=== PATIENT | female | born 1950 | race Caucasian/White ===

== ENCOUNTER 2020-05-14 11:21 | Inpatient (IN) | payer OTHER ==
[~2020-05-14] VITALS: Ht 170.2 cm; Wt 84.8 kg
[~2020-05-14 11:21] MED LIST: AUGMENTIN 875-1 EACH PO; CHLORTHALIDONE25 MG PO; CIPRO500 MG PO; DESVENLAFAXINE50 M2 PO; DOXEPIN 75 MG C75 MG PO; DOXEPIN HCL100 MG PO; EFFEXOR XR37.5 MG PO; ESCITALOPRAM OX20 MG PO; IBUPROFEN 200200 M1 PO; LEVAQUIN 500 M500 MG PO; LEXAPRO20 MG PO; LIPITOR40 MG PO; NORCO 5-325 TA1 EAC1 PO; OMEPRAZOLE40 MG PO; PANTOPRAZOLE SO40 M1 PO; SYNTHROID100 MC1 PO; TYLENOL EXTRA500 MG PO; XANAX 0.5 MG0.5 MG PO; XARELTO15 MG PO; ZOFRAN ODT4 MG PO; ZOFRAN4 MG PO; ZYPREXA 5 MG TAB5 M1 PO
--- NOTE | 2020-05-14 17:05 | NUR ---
PT ARRIVED TO UNIT VIA EMS. PT VERY TALKATIVE AND THANKED THE EMS FOR THEIR CARE. PT ABLE TO WALK FROM STRETCHER TO BED. PT VS TAKEN. GOT WATER FOR PATIENT.
[2020-05-14 17:30] VITALS: BP 129/88
--- NOTE | 2020-05-14 17:30 | NUR ---
WENT TO PT ROOM AND PT STATED SHE CAN'T STAY HERE. ANOTHER RESIDENT WAS YELLING DOWN THE [place] WITH REDIRECTION. SHE STATED SHE DIDN'T KNOW THAT THIS PLACE WAS THE WAY IT WAS THAT [facility] SET THIS UP AND SHE ISN'T CRAZY AND JUST NEED A MED ADJUSTMENT. PT STATED HER 5 YEARS AGO FROM A BRAIN TUMOR AND HE WAS HER ROCK. SHE STATED THEY HAVE BEEN FOR 46 1/2 YEARS. SHE SAYS SHE HAS 4 GIRLS. SHE SAYS THAT SHE DOES LIVE ALONE. SHE DENIES SUICICE, JUST HAVING ANXIETY.
--- NOTE | 2020-05-14 17:50 | NUR ---
PT WANTS CALLED NOW AND TALK TO HIM. SHE STATED THAT SHE DOESN'T BELONG HERE. PT PACING IN THE [place] WITH HER WATER PITCHER.
--- NOTE | 2020-05-14 18:51 | NUR ---
TALKED TO MAURI CAMARA DTR [phone]. SHE STATED THAT SHE JUST GOT OFF THE PHONE WITH HER MOM AND STATED SHE IS UPSET AND THINKS HER ANXIETY WILL BE INCREASED BEING HERE. SHE DOESN'T BELIEVE SHE IS A RISK OF HARMING HERSELF. DRT THINKS THAT SHE STARTED TAKING EFFEXOR AND SHE STARTED GETTING SYMPTOMS FROM THAT. DTR STATED THAT SHE HAD ALOT OF LOSSES. LOST HER DAD AND 7 DAYS LATER LOST HER BROTHER THAT HAD SEPSIS. SHE LOST HER 6 YRS AGO.
--- NOTE | 2020-05-14 19:15 | NUR ---
ANOTHER PART OF HX WAS HAVING A BLOOD CLOT TO RT KNEE, PT STATED SHE WAS ON XARALTO AND WAS TAKEN OFF OF IT DUE TO FALLING DOWN 2 STAIRS AND HAD A LARGE HEMATOMA TO HER BUTT. SAYS SHE SEES A COUNSELER ON A REG. BASIS NAMED KASIA, AND SHE CAN RECOMMEND A THERAPIST FOR HER.
[2020-05-14 19:41] VITALS: BP 136/80
--- NOTE | 2020-05-14 19:59 | NUR ---
PT STATED SHE WILL STAY, DR. DIEZ REC. STAYING THE NIGHT. PT STATED SHE IS BETTER NOW AND VISITING WITH OTHER RESIDENTS.
--- NOTE | 2020-05-15 00:45 | NUR ---
PATIENT WAS IN DINING ROOM WHEN THIS NURSE CAME ON SHIFT AT 1900. PATIENT WAS AWAITING DR Paula TO COME IN AND TALK WITH HER. PATIENT STARTED OFF SITTING BY HERSELF BUT GRADUALLY WORKED HER WAY TO A TABLE WITH 3 OTHER RESIDENTS AND VISITED WITH THEM WHILE WATCHING THE TITANIC ON TV. SHE WAS HEARD TELLING THEM ABOUT HER AND HOW HE HAD OF A BRAIN TUMOR AND HOW IT HAS LEFT HER SO DEPRESSED AND MISSING HIM. SHE WAS HYPERVERBAL AND WITH APPROPRIATE RESPONSES AND REACTIONS TO OTHERS THEY TALKED. PATIENT SEEMED TO RELAX THE EVENING WENT BY. AT BEGINNING OF EVENING SHE WAS WITH C/O OF PRESSURE IN HER CHEST. SHE WANTED TO MAKE SURE IT WASN'T HER HEART. SHE DID NOT HAVE PAIN. TOLD HER HER EKG SHOWED NSR AND A FEW PVC'S WHICH IS WHAT SHE MAY BE FEELING. EXPLAINED THAT ANXIETY CAN INCREASE THIS. WENT OVER A BREATHING TECHNIQUE TO SLOW BREATHING AND RELEASE ANXIETY. PATIENT STATES SHE FELT BETTER AND IS SURE IT WAS JUST HER ANXIETY. SHE HAD NO PROBLEMS THE REST OF NIGHT SHE WENT AND CONVERSED WITH OTHERS. ON ASSESSMEMENT, PATIENT'S LUNGS WERE CTA BILATERALLY. HER HEART SOUNDS WERE WNL WITH OCCASIONAL SKIP. HEARD S1S2, SLIGHT MURMUR. PATIENT WITHOUT EDEMA. STATES LAST BM WAS 05/12/20. SHE STATES SHE DOESN'T EAT MUCH AND CAN GO DAYS WITHOUT A BM. DENIES PAIN. DENIES SI/HI/AVH. VSS. NO WOUNDS SEEN ON SKIN NOT COVERED WITH CLOTHES. PATIENT WAS CALM THRUOUT EVENING AND WENT TO BED ON HER OWN. SHE IS INDEPENDENT WITH CARES. SHE WALKS WITH A STEADY GAIT. NO C/O OF DIZZINESS. WILL CONTINUE TO MONITOR. ROUTINE ROUNDS TO ASSESS SAFETY AND STATUS OF PATIENT. NEW GOWN AND YELLOW SOCKS PUT OUT ON BED FOR PATIENT.
[2020-05-15 07:32] VITALS: BP 127/57
--- NOTE | 2020-05-15 11:41 | NUR ---
Assumed care of patient at 0700. Up in dayroom for breakfast. Ambulates. Gait steady. Denies SI/HI and AVH. Denies having any pain. Breath sounds clear, abdomen soft with active bowel sounds. Patient stated she does not belong on this unit; She says she misses her yorkie and wants to be discharged. Animated, appropriate. Pleasant and cooperative. Taking medications as ordered. Says has anxiety all the time.
[2020-05-15 11:58] VITALS: BP 127/57
--- NOTE | 2020-05-15 13:45 | NUR ---
Pt will d/c home with outpt services. Pt has the following appointments: Follow up with PCP Dr. Joseph 06-02-2020 @11:40 a.m Intake with [facility] 06-04-2020 @12:00pm Follow up with therapist Jeanne Block [phone], 05-20-2020 @ 12pm
--- NOTE | 2020-05-17 16:26 | H ---
[facility] [place] [address] [place] [address] HISTORY AND PHYSICAL Name: BEATA TOLEDO Room #: 528A-A [facility] IN M.R.#: [id number] Admission: 05/14/20 Attend Phys: Alaln Barnes DO Discharge: 05/15/20 Date of : 48 Report #: [id number] THIS REPORT FOR: cc: Janelle Joseph MD,Allan Rowland MD, DO ~ CC: Allan Joseph DATE OF SERVICE: 05/15/2020 INPATIENT PSYCHIATRIC EVALUATION ATTENDING PSYCHIATRIST: Allan Barnes DO BIOFUELS RESEARCH SCIENTIST: None as the patient is discharging today and was transferred from [facility] where she was hospitalized from the to the or so april. SOURCES OF INFORMATION: Various consultations from [facility]; my own interview; telephone conversation with her daughter, Renea; and joint conference with socially responsible investment adviser, Maris and patient. CHIEF COMPLAINT: Alleged worsening depression, possible psychosis. HISTORY OF PRESENT ILLNESS: This is a 69-year-old female. She is retired, x 5 years or so. The patient initially presented to the Emergency Room at [facility] in [place] on the . She reported having episodes of vomiting today. EMS found AFib when they hooked up to a monitor, rate is 70-80. This is the second time in a week that she had an episode like this. The patient was medically admitted for dizziness and cardiac dysrhythmia. During her hospitalization at [facility], she was attended to by Dr. Mendieta and Dr. Kay. I do not have all the records from [place], but they diagnosed her with presyncope concern for underlying arrhythmia, vertigo, hypertension, hyperlipidemia, severe anxiety, hypothyroidism. Their plan initially was to check TSH and free T4, do an echo, watch her on telemetry for a few days. At some point, there came concerns of worsening depression, psychosis, apparently this was diagnosed in the past and suicidal ideation was a concern as well. There was a tele psychiatry consult done by Dr. Nicole Helton. On the HPI done by the tele psychiatrist, she was seen twice, the patient apparently continued to be confused on and off, agitated, loud, made suicidal statements and irritable, had an MRI/MRA, Neurology consult, cleared by Neurology. The patient says she is 69, does not want to burden her daughters if she has a terminal illness. The patient denies suicidal thoughts, intent or plan, but admits to saying, "I would and join [facility] [address] [place] [address] HISTORY AND PHYSICAL Name: BEATA TOLEDO PALOMA Room #: 528A-A [facility] IN M.R.#: [id number] Admission: 05/14/20 Attend Phys: Allan Barnes, DO Discharge: 05/15/20 Date of : 48 Report #: [id number] my if anything malignant on the test." Interestingly, in my conversation, the patient focused on her having a seizure and several malignant lesions being found in his brain and body. She also reports loss of several other close friends, family members over the in between years. The tele psychiatrist described her as hyperverbal with pressured speech, showed some improvement. The patient did receive 2 doses of Zyprexa 2.5 mg, but not any p.r.n. doses for agitation. The patient denied hearing voices. Reports eating fine, admits to having some anxiety on and off, had some trouble sleeping through the night, does appear to be confabulating. We called the daughter, Kesha Toledo. Daughter reports that the patient has been depressed since her and this is not correct, it was not 6 months ago, it was 6 years ago, but the tele psychiatrist noted 6 months and daughter describes her as gradually deteriorating, most significant worse in the last few days, was angry, repeats herself all the time, says she should have before her , talks about it all the time. Accusing her daughters of wanting to get rid of her and send her to a shelter. Has been combative, does not sleep well, erratic and bizarre behaviors where she hangs up the phone and calls back multiple times. Calling daughterRenea, frequently from hospital room, that staff are against her, try and to admit her somewhere else, asked daughters to hide her things from staff, reported seeing things moving in her room. Daughter has safety concerns and does not believe it is safe to discharge her from here. Interestingly, when I called the daughter, Renea, she was quite the opposite of that described by the tele psychiatrist, Sunitha. She said her mother was fine to return home. She frequently talks with her 5 to 8 to 10 times a day. She stated that her mother does keep busy with things and did not have the concerns as outlined in the telepsychiatry consult. Additional information I got: PAST MEDICAL HISTORY: Hypothyroidism. SURGERIES: Hysterectomy, cholecystectomy, appendectomy, breast biopsy, venous procedure on her legs. SOCIAL HISTORY: The patient is from [place], born and raised, high school education. Career, was a dental radiology assistant. She has 4 daughters, ranging in age from 35-51; two of them are local. She was 39 some years. Her did 5-1/2 years ago. She has not remarried. She states she is in biweekly, every 2 weeks psychotherapy with Jeanne Block at the [facility]. ALLERGIES: SULFA, CODEINE. PSYCHIATRIC MEDICATIONS: Xanax 1 mg t.i.d. p.r.n., Effexor XR 37.5 mg p.o. q.a.m., doxepin 100 mg p.o. at bedtime. She states ____ prescribes the Xanax and doxepin. I did discuss given the age of 69, that being on a tricyclic antidepressant is not recommended. The patient states as well regarding the Effexor, she has had a persistent degree of headache for 3 weeks, did not want [facility] [address] [place] [address] HISTORY AND PHYSICAL Name: BEATA TOLEDO PALOMA Room #: 528A-A [facility] IN M.R.#: [id number] Admission: 05/14/20 Attend Phys: Allan Barnes, DO Discharge: 05/15/20 Date of : 48 Report #: [id number] to resume the Effexor. I discussed the Xanax. I would defer to her outpatient providers, but that was fine for the time being as long as it is not overused. LABORATORY DATA: From [facility]: White blood cell count on the 12th of 5.4, H and H 14.2 and 41.8, platelet count 245. Coags: PT 10.1, INR 1.08, PTT 23.6. D-dimer quantitative 0.43. Chemistries from the 12th, sodium 139, potassium 3.9, chloride 105, bicarbonate 23, anion gap 11, BUN 11, creatinine 0.9, estimated GFR 62, glucose 159. Hemoglobin A1c 5.5. Calcium 8.2, AST 16, ALT 22, alkaline phosphatase 100. CK 29, CK-MB 7.5. TSH ____, free T4 of 1.12, free T3 of 2.8. Lipids: HDL 42, LDL 132, total cholesterol 211, triglycerides 185. Urinalysis was negative except for 1+ blood when it was done. There was greater than 30 bacteria, greater than 25 wbc's. ____ culture. There was a urine culture done and it was negative. Normal urinary and genitourinary gera. TOXICOLOGY: There was none done this admission. SEROLOGY: Negative for COVID-19 PCR. The patient denied physical, sexual or emotional abuse. HABITS: Denied tobacco, alcohol or recreational drug use. PHYSICAL EXAMINATION: VITAL SIGNS: Today here at [facility], temperature 36.6, pulse 69, respirations 16, BP 127/57. MUSCULOSKELETAL: Normal gait and station. MENTAL STATUS EXAMINATION: This is a well-developed, fairly nourished female, appearing stated age. Attention intact. Concentration intact. Speech is normal in rate, volume and tone. Thought process: Linear and goal directed. Thought content: Focused on discharge. Denied SI or HI. Denied auditory, visual, or tactile hallucinations. Denied hopelessness, helplessness. Memory not formally tested. The daughter did not have cognitive concerns. Insight fair. Judgment fair. Fund of knowledge average range. FORMULATION: A 69-year-old female transferred from [facility] for concerns of major depression, SI, psychosis. DIAGNOSES: At this time, unspecified depressive disorder; history of major depressive disorder; delirium secondary to general medical condition namely vomiting, dehydration, cardiac dysrhythmia, resolved. OTHER COMORBIDITIES: Include hyperlipidemia. PLAN: The patient currently does not meet criteria for inpatient psychiatric [facility] [address] [place] [address] HISTORY AND PHYSICAL Name: BEATA TOLEDO Room #: 528A-[facility] IN ..#: [id number] Admission: 05/14/20 Attend Phys: Allan Barnes DO Discharge: 05/15/20 Date of : 48 Report #: [id number] hospitalization, will discharge later this afternoon at 5:00. The patient's daughter, Renea is agreeing to pick her up after work. I asked my socially responsible investment adviser to make an outpatient psychiatrist appointment for her. She should continue in individual psychotherapy. She should continue in followup with Dr. Mabry. I am not going to start her on any new medications. I would not resume the Effexor at this point. She can continue to use the Xanax up to 3 mg per day. So, in the hospital for now, she is on atorvastatin 40 mg daily, levothyroxine 100 mcg p.o. daily, olanzapine was discontinued, otherwise her else PRNs. Time spent on interview, evaluation, review of records, coordination of care is at least 60 minutes. STRENGTHS: She is insured, supportive family. WEAKNESSES: Advancing age, recent losses, limited coping skills for some things that she will work on in psychotherapy. <ELECTRONICALLY SIGNED> By: Allan Barnes DO 05/17/20 [id number] Allan Barnes, DO /nt
--- NOTE | 2020-05-17 16:43 | D ---
[facility] [place] [address] [place] [address] DISCHARGE SUMMARY Name: BEATA TOLEDO Room #: 528A-A [facility] IN M.R.#: [id number] Admission: 05/14/20 Attend Phys: Allan Barnes DO Discharge: 05/15/20 Date of : 48 Report #: [id number] THIS REPORT FOR: cc: Janelle Joseph MD, Karmel MD Kerstein, Andrew H. DO ~ THIS REPORT FOR: //name// CC: Allan Joseph DATE OF SERVICE: 05/15/2020 INPATIENT PSYCHIATRIC DISCHARGE SUMMARY ATTENDING PHYSICIAN: Allan Barnes DO. No medical professionals due to brief discharge. DISCHARGE DIAGNOSES: Major depressive disorder, recurrent, moderate degree by history, delirium due to general medical condition, resolved. DISCHARGE PLAN: The patient is discharging to her home. Psychiatric care I believe is with [facility]. She has a counselor Apolinar Block appointment with on 05/19/2020. Her daughter Renea is her main support person. No prescriptions were given. MEDICATIONS: At the time of discharge alprazolam 0.5 mg p.o. t.i.d. p.r.n., atorvastatin 40 mg p.o. daily, levothyroxine 100 mcg p.o. daily. She was advised to discontinue venlafaxine and olanzapine was discontinued this admission, this was prescribed for delirium from [place]. Also, I have advised against, but the patient may continue to still take doxepin, which is a tricyclic antidepressant and is advised against given her age of 69. REASON FOR ADMISSION: Transferred from [facility] for concerns of depression, suicidal ideation and psychosis. HOSPITAL COURSE: Patient transfered from [facility] last night, and I did a full interview this morning. Unfortunately, when she was interviewed in [place], she was still fairly delirious. Her daughter gave a list of different concerns and she did concern the [facility] psychiatrist that saw her at [facility]. At present, she is not meeting criteria for hospitalization, is not suicidal or homicidal ideation, was alert and oriented x 4, so we will proceed with [facility] [address] [place] [address] DISCHARGE SUMMARY Name: BEATA TOLEDO PALOMA Room #: 528A-A [facility] IN ..#: [id number] Admission: 05/14/20 Attend Phys: Allan aBrnes DO Discharge: 05/15/20 Date of : 48 Report #: [id number] discharge. Interetsingly, her daughter did not have most of the concerns list in the telepsychiatrists report. PHYSICAL EXAMINATION: VITAL SIGNS: At time of discharge today, temperature 36.6, pulse 69, respirations 15, BP 126/57. MUSCULOSKELETAL: Normal gait and station. MENTAL STATUS EXAMINATION: This is a well-developed, fairly nourished female appearing stated age. Attention intact. Concentration intact. Speech is normal in rate, volume and tone. Thought process is linear and goal directed. Thought content focused on discharge. No SI, no HI. No auditory, visual, or tactile hallucinations. She has been denied hopelessness, helplessness. Memory not formally tested, though she did not have concerns about cognition. Insight fair. Judgment fair. Fund of knowledge average. PROGNOSIS: The patient is fair if she maintains in psychotherapy and psychiatric treatment sounds like a bad reaction to Effexor was what in part potentiated her medical admission at [facility]. <ELECTRONICALLY SIGNED> By: Allan Barnes DO 05/17/20 1643 Allan Barnes DO /nt
== END 2020-05-15 17:00 | disposition home or self-care (01) | DRG 885 ==
LOC: SBH 11:21
PROVIDERS: ADMIT Psychiatry & Neurology Psychiatry; ATTEND Psychiatry & Neurology Psychiatry
DX: F33.9 Major depressive disorder, recurrent, unspecified (principal); R45.851 Suicidal ideations; R41.0 Disorientation, unspecified; F29 Unspecified psychosis not due to a substance or known physiological condition; E03.9 Hypothyroidism, unspecified; I10 Essential (primary) hypertension; F41.9 Anxiety disorder, unspecified; E78.5 Hyperlipidemia, unspecified; Z90.710 Acquired absence of both cervix and uterus; Z90.49 Acquired absence of other specified parts of digestive tract; Z88.5 Allergy status to narcotic agent; Z88.2 Allergy status to sulfonamides
CPT/HCPCS: 10880